=== PATIENT | female | born 1990 | race Caucasian/White ===

== ENCOUNTER 2024-02-23 18:26 | Emergency (ER) | payer BC ==
[~2024-02-23] VITALS: Ht 172.7 cm; Wt 85.5 kg
[2024-02-23 18:39] VITALS: TEMP 98
[2024-02-23] MEDS ORDERED: Ketorolac 30 MG/ML VIAL IV ONE (19:15)
[2024-02-23] MEDS ORDERED: NS 1,000 ML IV ONE (19:15)
[2024-02-23 19:19] LABS: BASO % 0.2 % (0.0-2.0); EOS # 0.1 K/mm3 (0.0-0.7); EOS % 1.4 % (0.0-4.0); GRAN # 2.9 K/mm3 (1.4-6.5); GRAN % 57.5 % (42.2-75.2); HEMATOCRIT 39.6 % (37.0-47.0); HEMOGLOBIN 13.7 g/dl (12.5-16.0); LYMPH # 1.7 K/mm3 (1.2-3.4); LYMPH % 32.9 % (20.0-51.0); MEAN CELL VOLUME 92 fl (80.0-100.0); MEAN CORPUSCULAR HEMOGLOBIN 32 pg (27-31); MEAN CORPUSCULAR HGB CONC 35 g/dl (33.0-37.0); MEAN PLATELET VOLUME 9.5 fl (7.4-10.4); MONO # 0.4 K/mm3 (0.1-0.6); MONO % 7.8 % (1.7-9.3); PLATELET COUNT 267 K/mm3 (130-400); RED BLOOD COUNT 4.33 M/mm3 (4.10-5.30); REDCELL DISTRIBUTION WIDTH-CV 11.8 % (11.5-14.5)
[2024-02-23 19:41] LABS: ALBUMIN 4.2 g/dL (3.5-5.0); BILIRUBIN,TOTAL 0.7 mg/dL (0.2-1.2); CALCIUM 9.3 mg/dL (8.4-10.2); CREATININE, serum 0.84 mg/dL (0.57-1.11); POTASSIUM 3.8 mEq/L (3.5-4.5)
[2024-02-23] MEDS ORDERED: Iohexol 300 - 100 ML VIAL IV ONE (19:48)
[2024-02-23] MEDS ORDERED: NS 50 ML IV SCH (19:49)
[2024-02-23] MEDS ORDERED: Morphine 4 MG/ML VIAL IV ONE (20:15)
[2024-02-23 20:17] LABS: COLLECTION METHOD CLEAN CATCH
[2024-02-23 20:23] LABS: PH 7.5 (5.0-8.5); URINE APPEARANCE CLEAR (CLEAR/HAZY); URINE BLOOD NEGATIVE (NEGATIVE); URINE COLOR YELLOW (YELLOW); URINE GLUCOSE NEGATIVE (NEGATIVE); URINE KETONE NEGATIVE (NEGATIVE); URINE NITRATE NEGATIVE (NEGATIVE); URINE PROTEIN(semi-quant) NEGATIVE (NEGATIVE); URINE UROBILINOGEN 0.2 E.U/dL (0.2-1.0)
[2024-02-23] MEDS ORDERED: Home HYDROcodone/Acetaminophen 5/325 MG #4 TABS/PACK PO ONE (21:00)
[2024-02-23] MEDS ORDERED: oxyCODONE/Acetaminophen 5-325 MG TAB PO ONE (21:00)
[2024-02-23 21:26] VITALS: BP 106/57; PULSE 80
== END 2024-02-23 21:27 | disposition home or self-care (01) ==
LOC: COL.ER 18:26
PROVIDERS: Physician Assistant
DX: N83.201 Unspecified ovarian cyst, right side (principal); Z90.49 Acquired absence of other specified parts of digestive tract
CPT/HCPCS: J1885; J2270; J7030; Q9967

== ENCOUNTER → 2024-02-24 | Outpatient (CLI) | payer BC | LOC: COL.RAD 05:27 | DX: N83.201 Unspecified ovarian cyst, right side (principal) ==